=== PATIENT | female | born 1995 | race Caucasian/White ===

== ENCOUNTER 2016-05-29 09:40 | Emergency (ER) | payer BC ==
[~2016-05-29] VITALS: Ht 160 cm; Wt 100.0 kg
[2016-05-29 09:42] VITALS: BP 132/78; PULSE 89; RESP 17; TEMP 97.8; O2SAT 97
[2016-05-29 10:29] VITALS: BP 136/80; PULSE 86; RESP 18; TEMP 98; O2SAT 97
--- NOTE | 2016-05-29 10:39 | PD ---
HPI Chief Complaint: Abdominal Pain Time Seen by Provider: 10:06 Travel History International Travel<30 days: No Contact w/Intl Traveler<30days: No Traveled to known affect area: No History of Present Illness HPI The patient was seen and examined in the presence of the nurse. This patient complains of nausea and vomiting. Duration 2 days. Severity is moderate. No alleviating factors PFSH Past Medical History Influenza Vaccination: Yes ?: Not LMP: last week : 1 Miscarriage: 1 Social History Alcohol Use: No Tobacco Use: No Substance Use: No Allergies-Medications (Allergen,Severity, Reaction): Coded Allergies: No Known Allergies (Unverified , 05/29/16) Review of Systems General / Constitutional: No: Fever HENT: No: Headaches Cardiovascular: No: Chest Pain or Discomfort Gastrointestinal: Positive: Nausea, Vomiting Physical Exam Narrative GASTROINTESTINAL: Abdomen soft, non-tender, nondistended. Positive bowel sounds. No hepato-splenomegaly, or palpable masses. No guarding. SKIN: Inspection shows no rash or ulcers. Palpation shows no induration or nodules. NECK: Symmetrical appearance, midline trachea. No mass or crepitus. Thyroid without enlargement, tenderness, or mass. Data Data Last Documented VS Vital Signs Date Time Temp Pulse Resp B/P Pulse Ox O2 Delivery O2 Flow Rate FiO2 05/29/16 10:29 98.0 86 18 136/80 97 Room Air Orders Ondansetron Odt (Zofran Odt) (05/29/16 10:45) MDM Medical Decision Making Medical Screen Exam Complete: Yes Emergency Medical Condition: Yes Medical Record Reviewed: Yes Differential Diagnosis Gastroenteritis, colitis, ileus Narrative Course I have reviewed the patient's electronic medical record. Patient has normal exam and normal vital signs. She looks euvolemic. I gave her dose of Zofran here and prescription for same Recommend primary care follow-up, return if worse Diagnosis Primary Impression: Nausea and vomiting Qualified Code: R11.2 - Non-intractable vomiting with nausea, unspecified vomiting type Additional Instructions: The patient was advised to follow up with their physician and return if they worsen. I have recommended clear liquids for 24 hours, then gradually advance as tolerated. Med/Other Pt SpecificInfo: Prescription(s) given Disposition: 01 DISCHARGE HOME Condition: Stable Avelino Girard MD May 29, 2016 10:39
[2016-05-29] MEDS ORDERED: ZOFR4TAB PO (10:40)
[2016-05-29] MEDS ORDERED: ONDANSETRON ODT 4 MG TAB PO ONE (10:45)
== END 2016-05-29 12:05 | disposition home or self-care (01) ==
LOC: NEPE 09:40
DX: R11.2 Nausea with vomiting, unspecified (principal)
CPT/HCPCS: 99283

== ENCOUNTER 2016-08-30 09:54 | Emergency (ER) | payer OTHER, BC ==
[~2016-08-30] VITALS: Ht 160 cm; Wt 109.0 kg
[~2016-08-30 09:54] MED LIST: ZOFR4TAB PO
[2016-08-30 09:59] VITALS: BP 142/90; PULSE 118; RESP 16; TEMP 98.5; O2SAT 99
[2016-08-30] MEDS ORDERED: BIRTH CONTROL PO (10:10)
[2016-08-30] MEDS ORDERED: ACETAMINOPHEN/HYDROcodone 325 MG/5 MG TAB PO ONE (10:15)
--- NOTE | 2016-08-30 10:35 | PD ---
HPI Chief Complaint: Head Injury Time Seen by Provider: 10:15 Travel History International Travel<30 days: No Contact w/Intl Traveler<30days: No Traveled to known affect area: No History of Present Illness HPI Patient presents with complaints of headache. States yesterday she head butted someone at work with contact being made in the right temporal region. Reports no loss consciousness. Reports, vision at the time which has resolved and persistent headache. Denies . Reports nausea and vomiting at the time of the accident. Continues to have mild nausea. Denies vomiting. Denies any new chest pain shortness of breath urinary or bowel symptoms. PFSH Past Medical History Hx Anticoagulant Therapy: No Kidney Stones: Yes Medical other: Yes ([facility]) Tetanus Vaccination: Unknown Influenza Vaccination: No ?: Unknown : 1 Miscarriage: 1 Past Surgical History Surgical History: No Previous Surgery Social History Alcohol Use: No Tobacco Use: Yes (COUPLE CIG PER MONTH) Substance Use: No Allergies-Medications (Allergen,Severity, Reaction): Coded Allergies: No Known Allergies (Unverified , 08/30/16) Reported Meds & Prescriptions Reported Meds & Active Scripts Active Reported [ Control] Unknown Dose PO HS Review of Systems General / Constitutional: No: Fever Eyes: No: Visual changes HENT: Positive: Headaches Cardiovascular: No: Chest Pain or Discomfort Respiratory: No: Shortness of Breath Gastrointestinal: No: Abdominal Pain Genitourinary: No: Dysuria Musculoskeletal: No: Pain Skin: No Rash Neurologic: No: Weakness Psychiatric: No: Depression Endocrine: No: Polydipsia Hematologic/Lymphatic: No: Easy Bruising Physical Exam Narrative GENERAL: Well-nourished, well-developed patient. SKIN: Focused skin assessment warm/dry. HEAD: Normocephalic. EYES: No scleral icterus. No injection or drainage. Pupils equal, round reactive light accommodation NECK: Supple, trachea midline. No JVD or lymphadenopathy. CARDIOVASCULAR: Regular rate and rhythm without murmurs, gallops, or rubs. RESPIRATORY: Breath sounds equal bilaterally. No accessory muscle use. GASTROINTESTINAL: Abdomen soft, non-tender, nondistended. MUSCULOSKELETAL: No cyanosis, or edema. BACK: Nontender without obvious deformity. No CVA tenderness. Data Data Last Documented VS Vital Signs Date Time Temp Pulse Resp B/P Pulse Ox O2 Delivery O2 Flow Rate FiO2 08/30/16 10:11 Room Air 6/10/17 09:59 98.5 118 16 142/[address] Brain W/O Iv Contrast(Rout) (08/30/16 ) Acetamin-Hydrocod 325-5 Mg ([place] 5-325 (08/30/16 10:15) Ed Urine Pregnancytest Poc (08/30/16 10:37) MDM Medical Decision Making Medical Screen Exam Complete: Yes Emergency Medical Condition: Yes Differential Diagnosis CVA, subdural hematoma, cephalgia Narrative Course Assessment and plan discussed with patient and boyfriend at bedside. Last [address] 08/30/16 0000 Signed Impressions: Service Date/Time: Tuesday, August 30, 2016 10:21 - CONCLUSION: Negative for acute traumatic injury.. Patrick Reynoso MD FACR Diagnosis Primary Impression: Mild concussion Qualified Code: S06.0X0A - Mild concussion, without LOC, initial encounter Patient Instructions: General Instructions Additional Instructions: Motrin or Tylenol for pain. Return to emergency room with any onset of new symptoms. Rest and fluids. Workman's comp papers completed. Return to work in 2 days. Med/Other Pt SpecificInfo: No Meds Exist/No RX given Disposition: 01 DISCHARGE HOME Condition: Critical CoryVini cole MD Aug 30, 2016 10:34
--- NOTE | 2016-08-30 10:40 | RADHPO ---
EXAM DATE/TIME: 08/30/2016 10:21 [facility] COMPARISON: No previous studies available for comparison. INDICATIONS : Hit head yesterday without loss of counciousness. RADIATION DOSE: 66.89 CTDIvol (mGy) MEDICAL HISTORY : Hypoglycemic SURGICAL HISTORY : None. ENCOUNTER: Initial ACUITY: 2 days PAIN SCALE: 5/10 LOCATION: Right cranial TECHNIQUE: Multiple contiguous axial images were obtained of the head. Using automated exposure control and adj ustment of the mA and/or kV according to patient size, radiation dose was kept as low as reasonably a chievable to obtain optimal diagnostic quality images. FINDINGS: CEREBRUM: The ventricles are normal for age. No evidence of midline shift, mass lesion, hemorrhage or acute in farction. No extra-axial fluid collections are seen. POSTERIOR FOSSA: The cerebellum and brainstem are intact. The 4th ventricle is midline. The cerebellopontine angle i s unremarkable. EXTRACRANIAL: The visualized portion of the orbits is intact. SKULL: The calvaria is intact. No evidence of skull fracture. CONCLUSION: Negative for acute traumatic injury.. Patrick Reynoso MD FACR on August 30, 2016 at 10:37 Board Certified Radiologist. This report was verified electronically.
[2016-08-30 11:48] VITALS: BP 140/86
== END 2016-08-30 11:51 | disposition home or self-care (01) ==
LOC: PHED 09:54
DX: S06.0X0A Concussion without loss of consciousness, initial encounter (principal); Z72.0 Tobacco use; Z87.442 Personal history of urinary calculi; Z86.2 Personal history of diseases of the blood and blood-forming organs and certain disorders involving the immune mechanism; W51.XXXA Accidental striking against or bumped into by another person, initial encounter; Y99.0 Civilian activity done for income or pay
CPT/HCPCS: 70450; 84703; 99284

== ENCOUNTER 2016-11-01 01:48 | Emergency (ER) | payer BC ==
[~2016-11-01] VITALS: Ht 160 cm; Wt 112.0 kg
[~2016-11-01 01:48] MED LIST changes: +BIRTH CONTROL PO; -ZOFR4TAB PO
[2016-11-01 01:56] VITALS: BP 136/95; PULSE 125; RESP 16; TEMP 98.3; O2SAT 98
[2016-11-01] MEDS ORDERED: SODIUM CHLOR 0.9% 1000 ML INJ 1,000 ML IV ONE (02:15)
[2016-11-01] MEDS ORDERED: ONDANSETRON HCL 4 MG/2 ML VIAL IVP ONE (02:15)
[2016-11-01] MEDS ORDERED: SODIUM CHLORIDE 0.9% FLUSH 10 ML FLUSH IV FLUSH PRN (02:15)
--- NOTE | 2016-11-01 02:16 | PD ---
HPI Chief Complaint: GI Complaint Time Seen by Provider: 02:13 Travel History International Travel<30 days: No Contact w/Intl Traveler<30days: No Traveled to known affect area: No History of Present Illness HPI 21-year-old female presents to the emergency department for complaint of 2 weeks of respiratory illness symptoms with increasing symptoms over the past 2- 3 days with headache sinus pressure drainage sneezing cough congestion and vomiting intermittent abdominal cramping and diarrhea. No dysuria frequency or hematuria. Patient denies flank pain. Patient denies . No foreign travel no dietary indiscretion no well water ingestion. No friends or coworkers or similar symptoms. Pain is described as 2/10 in intensity. PFSH Past Medical History Hx Anticoagulant Therapy: No Kidney Stones: Yes : 1 Miscarriage: 1 Social History Alcohol Use: No Tobacco Use: Yes (COUPLE CIG PER MONTH) Substance Use: No Allergies-Medications (Allergen,Severity, Reaction): Coded Allergies: No Known Allergies (Unverified , 08/30/16) Reported Meds & Prescriptions Reported Meds & Active Scripts Active Reported [ Control] Unknown Dose PO HS Review of Systems Except as stated in HPI: all other systems reviewed are Neg General / Constitutional: Positive: Fever, Chills HENT: Positive: Congestion Cardiovascular: No: Chest Pain or Discomfort Respiratory: No: Shortness of Breath Gastrointestinal: Positive: Nausea, Vomiting, Diarrhea Genitourinary: Positive: Decreased Urinary Output Musculoskeletal: Positive: Myalgias, Arthralgias Skin: No Rash Neurologic: No: Weakness Psychiatric: No: Anxiety Hematologic/Lymphatic: No: Lymph Node Enlargement Physical Exam Narrative GENERAL: Well-developed well-nourished female in no acute distress no respiratory distress SKIN: Warm and dry. HEAD: Normocephalic. EYES: No scleral icterus. No injection or drainage. ENT mucous membranes moist airway is patent tympanic membranes no redness no dullness loss of landmarks. NECK: Supple, trachea midline. No JVD or lymphadenopathy. No meningismus no nuchal rigidity. CARDIOVASCULAR: Regular rate and rhythm without murmurs, gallops, or rubs. RESPIRATORY: Breath sounds equal bilaterally. No accessory muscle use. GASTROINTESTINAL: Abdomen soft, non-tender, nondistended. MUSCULOSKELETAL: No cyanosis, or edema. BACK: Nontender without obvious deformity. No CVA tenderness. Data Data Last Documented VS Vital Signs Date Time Temp Pulse Resp B/P Pulse Ox O2 Delivery O2 Flow Rate FiO2 11/01/16 03:35 93 16 99 11/01/16 02:47 Room Air 11/01/16 01:56 98.3 136/95 Orders Complete Blood Count With Diff (11/01/16 02:13) Comprehensive Metabolic Panel (11/01/16 02:13) Lipase (11/01/16 02:13) Lactic Acid (11/01/16 02:13) Urinalysis - C+S If Indicated (11/01/16 02:13) Iv Access Insert/Monitor (11/01/16 02:13) Ecg Monitoring (11/01/16 02:13) Oximetry (11/01/16 02:13) Ondansetron Inj (Zofran Inj) (11/01/16 02:15) Sodium Chloride 0.9% Flush (Ns Flush) (11/01/16 02:15) Ed Urine Pregnancytest Poc (11/01/16 02:13) Sodium Chlor 0.9% 1000 Ml Inj (Ns 1000 M (11/01/16 02:15) Magnesium (Mg) (11/01/16 02:13) Urine Culture (11/01/16 02:30) Ceftriaxone Inj (Rocephin Inj) (11/01/16 03:45) Labs Laboratory Tests Test 11/01/16 02:30 White Blood Count 12.5 TH/MM3 Red Blood Count 5.31 MIL/MM3 Hemoglobin 12.8 GM/DL Hematocrit 39.9 % Mean Corpuscular Volume 75.1 FL Mean Corpuscular Hemoglobin 24.0 PG Mean Corpuscular Hemoglobin 32.0 % Concent Red Cell Distribution Width 14.3 % Platelet Count 332 TH/MM3 Mean Platelet Volume 7.7 FL Neutrophils (%) (Auto) 65.2 % Lymphocytes (%) (Auto) 28.0 % Monocytes (%) (Auto) 5.3 % Eosinophils (%) (Auto) 0.8 % Basophils (%) (Auto) 0.7 % Neutrophils # (Auto) 8.1 TH/MM3 Lymphocytes # (Auto) 3.5 TH/MM3 Monocytes # (Auto) 0.7 TH/MM3 Eosinophils # (Auto) 0.1 TH/MM3 Basophils # (Auto) 0.1 TH/MM3 CBC Comment DIFF FINAL Differential Comment Urine Color YELLOW Urine Turbidity CLEAR Urine pH 6.0 Urine Specific [place] 1.022 Urine Protein NEG mg/dL Urine Glucose (UA) NEG mg/dL Urine Ketones NEG mg/dL Urine Occult Blood NEG Urine Nitrite NEG Urine Bilirubin NEG Urine Leukocyte Esterase NEG Urine RBC 0-2 /hpf Urine WBC 0-2 /hpf Urine Squamous Epithelial > 8 /hpf Cells Urine Bacteria MANY /hpf Microscopic Urinalysis Comment CULTURE INDICATED Sodium Level 138 MEQ/L Potassium Level 3.9 MEQ/L Chloride Level 105 MEQ/L Carbon Dioxide Level 24.1 MEQ/L Anion Gap 9 MEQ/L Blood Urea Nitrogen 8 MG/DL Creatinine 0.54 MG/DL Estimat Glomerular Filtration 143 ML/MIN Rate Random Glucose 100 MG/DL Lactic Acid Level 1.1 mmol/L Calcium Level 9.0 MG/DL Magnesium Level 2.0 MG/DL Total Bilirubin 0.1 MG/DL Aspartate Amino Transf 27 U/L (AST/SGOT) Alanine Aminotransferase 37 U/L (ALT/SGPT) Alkaline Phosphatase 130 U/L Total Protein 8.3 GM/DL Albumin 3.2 GM/DL Lipase 104 U/L [facility] Medical Decision Making Medical Screen Exam Complete: Yes Emergency Medical Condition: Yes Medical Record Reviewed: Yes Interpretation(s) Urinalysis: Many bacteria culture indicated [id number] hCG: Negative CBC is automated differential total white cell count mildly elevated 12,500 stable hemoglobin hematocrit and platelet count as well as normal automated differential Metabolic panel eyes normal range CBC & BMP Diagram 11/01/16 02:30 Vital Signs Date Time Temp Pulse Resp B/P Pulse Ox O2 Delivery O2 Flow Rate FiO2 11/01/16 03:35 93 16 99 11/01/16 02:47 96 16 99 Room Air 11/01/16 01:56 98.3 125 16 136/95 98 Room Air Differential Diagnosis Viral syndrome, gastroenteritis, UTI, , sinusitis, influenza, pneumonia , dehydration, service, sepsis Narrative Course IV access obtained specimens collected and sent for resulting; patient administered Zofran and IV fluids Urinalysis shows positive bacteria cultures indicated lactic acid is normal at 1.1 white cell count mildly elevated 12,500 Patient given Rocephin 1 g IV piggyback No vomiting in the emergency department; vital signs normalized. Is now 4:30 AM patient feels well is aware she has a urinary tract infection has received a dose of IV antibiotic there is no further nausea she's had no vomiting in the emergency department and vital signs have normalized. At this point time patient appears stable for outpatient management. Sepsis Criteria SIRS Criteria (2 or more): Heart rate over 90, WBC > 20847, < 4000 or > 10% bands Sepsis Criteria (SIRS+source): Infect source susp/known (urine) Diagnosis Primary Impression: UTI (urinary tract infection) Qualified Code: N39.0 - Urinary tract infection without hematuria, site unspecified Additional Impression: Nausea and vomiting Qualified Code: R11.2 - Non-intractable vomiting with nausea, unspecified vomiting type Referrals: Primary Care Physician call for appointment Patient Instructions: General Instructions Additional Instructions: Increase fluid hydration Follow clear liquid diet for next 12-24 hours advance as tolerated bland/Supriya diet and regular diet Complete course of antibiotic as prescribed Take acetaminophen/Tylenol as needed for fever 100.4F or greater Return to the emergency department fever pain vomiting or any concerns Med/Other Pt SpecificInfo: Prescription(s) given Scripts Ondansetron Odt (Zofran Odt)4 Mg Tab4 Mg SL Q6HR PRN (Nausea/Vomiting) #10 TAB Ref 0 Prov:Benita Schofield MD 11/01/16 Sulfamethoxazole-Trimethoprim (Bactrim DS)800-160 Mg Tab1 Tab PO BID #14 TAB Ref 0 Prov:Benita Schofield MD 11/01/16 Disposition: 01 DISCHARGE HOME Condition: Stable Benita Schofield MD Nov 01, 2016 02:16
[2016-11-01 02:45] LABS: AUTOMATED NEUTROPHIL # 8.1 TH/MM3 (1.8-7.7); BASOPHIL # 0.1 TH/MM3 (0-0.2); BASOPHIL % 0.7 % (0.0-2.0); BLOOD, URINE NEG (NEG); EOSINOPHIL # 0.1 TH/MM3 (0-0.4); EOSINOPHIL % 0.8 % (0.0-4.0); GLUCOSE,URINE NEG (NEG); HEMATOCRIT 39.9 % (35.0-46.0); KETONE, URINE NEG (NEG); LYMPHOCYTE # 3.5 TH/MM3 (1.0-4.8); MEAN CELL VOLUME 75.1 FL (80.0-100.0); MONO % 5.3 % (0.0-8.0); NEUT % 65.2 % (16.0-70.0); NITRITE,URINE NEG (NEG); PLATELET COUNT 332 TH/MM3 (150-450); RED BLOOD COUNT 5.31 MIL/MM3 (4.00-5.30); RED CELL DISTRIBUTION WIDTH 14.3 % (11.6-17.2); WHITE BLOOD COUNT 12.5 TH/MM3 (4.0-11.0)
[2016-11-01 02:47] VITALS: PULSE 96; RESP 16; O2SAT 99
[2016-11-01 02:53] LABS: HEMO FLAGS DIFF FINAL
[2016-11-01 02:54] LABS: URINE COLOR YELLOW (YELLW/STRAW)
[2016-11-01 02:55] LABS: CHLORIDE 105 MEQ/L (98-107); POTASSIUM 3.9 MEQ/L (3.5-5.1); SODIUM (NA) 138 MEQ/L (136-145)
[2016-11-01 02:56] LABS: BACTERIA, URINE MANY /hpf; COMMENT (UR) CULTURE INDICATED; CULTURE IF INDICATED CULTURE INDICATED; RBC, URINE 0-2 /hpf (0-3); SQUAMOUS EPITHELIAL CELL URINE > 8 /hpf (0-5); WBC, URINE 0-2 /hpf (0-5)
[2016-11-01 02:59] LABS: ANION GAP 9 MEQ/L (5-15); BICARBONATE 24.1 MEQ/L (21.0-32.0)
[2016-11-01 03:00] LABS: BLOOD UREA NITROGEN 8 MG/DL (7-18)
[2016-11-01 03:02] LABS: ALT (GPT) 37 U/L (10-53); AST (GOT) 27 U/L (15-37); GLOMERULAR FILTRATION RATE 143 ML/MIN (>89)
[2016-11-01 03:04] LABS: TOTAL BILIRUBIN ADULT 0.1 MG/DL (0.2-1.0)
[2016-11-01 03:05] LABS: ALKALINE PHOSPHATASE 130 U/L (45-117)
[2016-11-01 03:35] VITALS: PULSE 93; RESP 16; O2SAT 99
[2016-11-01] MEDS ORDERED: cefTRIAXone INJ 1,000 MG in SODIUM CHLORIDE 0.9% INJ 100 ML IV ONE (03:45)
[2016-11-01] MEDS ORDERED: BACT800T5 PO (04:23)
[2016-11-01] MEDS ORDERED: ZOFR4TAB3 SL (04:23)
[2016-11-01 05:00] VITALS: BP 116/79
== END 2016-11-01 05:16 | disposition home or self-care (01) ==
LOC: PHED 01:48
DX: N39.0 Urinary tract infection, site not specified (principal); B96.89 Other specified bacterial agents as the cause of diseases classified elsewhere; R11.2 Nausea with vomiting, unspecified
CPT/HCPCS: 80053; 81001; 83605; 83690; 83735; 84703; 85025; 87086; 96361; 96365; 96375; 99284; J0696; J2405; J7030